=== PATIENT | male | born 1965 | race Caucasian/White ===

== ENCOUNTER 2020-03-09 12:49 | Inpatient (IN) | payer MEDICAID ==
[~2020-03-09] VITALS: Ht 175.3 cm; Wt 74.8 kg
[2020-03-09] MEDS ORDERED: IV NS 0.9% 1,000 ML BAG IV ONE (13:00)
--- NOTE | 2020-03-09 13:00 | NUR ---
CALLED POISON CONTROL [phone] CHARLY WATCH FOR LEAVE MANAGER DEPRESSION QRS WIDENING AND IN EXTREME CASES SEIZURE, AWARE.
--- NOTE | 2020-03-09 13:10 | NUR ---
DELANEY FROM HIS CAR PAR ALONG [facility] TO ER BED 5. ARRIVED ON 02 VIA NON REBREATHER MASK @ 15LMP SATTING AT 100%. PT IS DIFFICULT TO ARROUSE, WAKES UP WITH PAINFUL STIMULI BUT GOES BACK TO SLEEP RIGHT AWAY. PT IS TRYING TO PULL OUT EQUIPMENT SO MD ORDERED TO PUT BILAT UPPER EXT SOFT RESTRAINT. PER EMS REPORT, PT WAS OVERDOSED ON PAXIL, AMBIEN AND UNISOM OF UNKNOWN AMOUNT. PT IS NOW ON O2 VIA SIMPLE FACE MASK @ 6LPM, SATTING @ 99%. ACCORDING TO DAUGHTER, PT STARTED SAYING GOOD BYE TO HIS FAMILY YESTERDAY. SHE REPORTS THAT THE PT LOST HIS JOB RECENTLY. PT WAS ALSO NOTED WITH MULTIPLE CROSSWISE LACERATIONS ON HIS L WRIST, NOT ACTIVELY BLEEDING, AVERAGING ABOUT 1CM IN LENTH WITH MULTIPLE DEPTH. MD WAS AT THE BEDSIDE FOR EVAL. ORDERS RECEIVED NOTED AND CARRIED OUT. IV LINE PRESNET ON R AC 18G. ANOTHER IV ESTABLISHED ON THE RFA 18G. BLOOD DRAWN AND GIVEN TO BOTTOM PRECIPITATOR OPERATOR AT BEDSIDE. WILL CONTINUE TO MONITOR
[2020-03-09 13:13] LABS: BASOPHILS % (AUTO) 0.6 % (0.0-2.0); EOSINOPHILS % (AUTO) 0.2 % (0.0-6.0); HEMATOCRIT 42 % (39-51); LYMPHOCYTES # (AUTO) 1.1 /CMM (0.8-4.8); LYMPHOCYTES % (AUTO) 15.5 % (20.0-44.0); MEAN CORPUSCULAR HGB CONC 33 g/dl (31.0-36.0); MEAN CORPUSCULAR VOLUME 91 fL (80-96); MONOCYTES # (AUTO) 0.5 /CMM (0.1-1.30); MONOCYTES % (AUTO) 6.2 % (2.0-12.0); NEUTROPHILS # (AUTO) 5.7 /CMM (1.8-8.9); NEUTROPHILS % (AUTO) 77.5 % (43.0-81.0); PLATELET COUNT (AUTO) 357 /CMM (150-450); RED BLOOD CELL COUNT(AUTO) 4.64 MIL/uL (4.5-6.0); WHITE BLOOD COUNT (AUTO) 7.3 K/uL (4.3-11.0)
[2020-03-09] MEDS ORDERED: LIDOCAINE HCL/MPF 1% 30 ML VIAL IJ ONE (13:21)
--- NOTE | 2020-03-09 13:25 | NUR ---
PT +CIRCULATION, CAP REFILL WNL. RESTRAINT REMOVED FOR A MINUTE
[2020-03-09] MEDS ORDERED: TDAP [DIPH/PERTUSSIS/TET] 0.5 ML VIAL IM ONE ×2 (13:30→14:36)
--- NOTE | 2020-03-09 13:30 | NUR ---
[employer] TALKING TO PT'S DAUGHTER.
[2020-03-09 13:36] LABS: CALCIUM, SERUM 8.6 mg/dL (8.5-10.1); CARBON DIOXIDE 28 mmol/L (21-32); CHLORIDE 99 mmol/L (98-107); CREATININE 0.9 mg/dL (0.6-1.3); GLUCOSE 116 mg/dL (74-106); POTASSIUM 3.5 mmol/L (3.5-5.1); SODIUM SERUM 133 mmol/L (136-145); UREA NITROGEN, BLOOD 10 mg/dL (7-18)
[2020-03-09 13:42] LABS: ALANINE AMINOTRANSFERASE 29 U/L (12-78); ALBUMIN 3.9 g/dL (3.4-5.0); ALCOHOL, BLOOD < 3 mg/dL (0-0); ALKALINE PHOSPHATASE 55 U/L (46-116); ASPARTATE AMINOTRANSFERASE 17 U/L (15-37); BILIRUBIN,DIRECT 0.2 mg/dL (0.0-0.2); BILIRUBIN,TOTAL 0.9 mg/dL (0.2-1.0); TOTAL PROTEIN, SERUM 7.1 g/dL (6.4-8.2)
[2020-03-09 13:44] LABS: ACETAMINOPHEN < 10 ug/ml (10-30); SALICYLATE < 2.8 mg/dL (2.8-20.0)
[2020-03-09] MEDS ORDERED: ZOLP10TA2 PO (13:58)
[2020-03-09] MEDS ORDERED: PARO20TA7 PO (13:58)
--- NOTE | 2020-03-09 14:00 | NUR ---
PT'S RESTRAINTS WAS DISCONTINUED SINCE PT IS SLEEPING AND VERY SEDATED.
--- NOTE | 2020-03-09 14:00 | NUR ---
AT BEDSIDE FOR SUTURE
--- NOTE | 2020-03-09 14:02 | NUR ---
PT O2 TITRATED AND TOLERATED W/O O2 USE. SATTING @ 96-98% ON RA. IS OK WELL KRISSY STANFORD
--- NOTE | 2020-03-09 14:31 | NUR ---
CORNELL PLACED PT ON 5210 HOLD FOR DEANGER TO SELF. WRITTEN ON 03/09/20 @ 6144
[2020-03-09 14:52] LABS: APPEARANCE,URINE Clear (CLEAR); BILIRUBIN,URINE Negative (NEGATIVE); BLOOD, URINE Trace-intact Ery/uL (NEGATIVE); COLOR,URINE Yellow (YELLOW); KETONES,URINE Negative (NEGATIVE); LEUKOCYTE ESTERASE ,URINE Negative (NEGATIVE); NITRITE, URINE Negative (NEGATIVE); PROTEIN,URINE Negative (NEGATIVE); UGLUCOSE Negative (NEGATIVE); UROBILINOGEN,URINE 0.2 EU/dL (0.2)
[2020-03-09] MEDS ORDERED: MAGNESIUM HYDROXIDE 30 ML UDC PO PRN (15:00)
[2020-03-09] MEDS ORDERED: Z GUARD REMEDY 2 OZ OINT TP PRN (15:00)
[2020-03-09] MEDS ORDERED: MAG HYDROX/AL HYDROX/SIMETH 30 ML UDC PO PRN (15:00)
[2020-03-09] MEDS ORDERED: ONDANSETRON HCL/PF 4 MG/2 ML VIAL IVP PRN (15:00)
[2020-03-09 15:09] LABS: BACTERIA,URINE None seen /HPF (None Seen); SQUAMOUS EPITHELIAL CELL,UR Few /HPF (None Seen); WBC,URINE 0-2 /HPF (0-3)
--- NOTE | 2020-03-09 15:18 | NUR ---
received a covid 19 result from the lab "negative".
--- NOTE | 2020-03-09 15:43 | NUR ---
REPORT GIVEN TO JAMES SIMS FOR ROLANDA.
--- NOTE | 2020-03-09 16:11 | NUR ---
PT TRANSPORTTED TO UNIT ON [facility] WITH EMT AND RN AT BEDSIDE W/ ACLS PROTOCOL. NAD NOTED DURING TRANSPORT.
--- NOTE | 2020-03-09 16:15 | NUR ---
ADMISSION NOTES RECEIVED PATIENT FROM ER VIA JAMES DANIELLE AT BED SITE AND SITTER SARAY, PATIENT IS SLEEPING, UNABLE TO AROUSE, VITAL SIGNS: TEMP-98.1; HR-93; RESP-18, SPO2-97%, BP: 117/76 ON ROOM AIR, NO SOB, DISTRESS NOTED, EVEN RESPIRATIONS, 5 CUTS ON L WRIST , PLACED KERLIX IN ER, R WRIST ONE CUT, PIC TAKEN, r AC G18 AND r FA G18 , NOTED, INTACT, FLUSHED,, PATENT BRYSON IN PLACE, DRAINING YELLOW URINE BY GRAVITY SAFETY MEASURES IMPLEMENTED, CALL LIGHT IN REACH, SITTER AT BED SITE, WILL CONT TO MONITOR
[2020-03-09 16:25] VITALS: BP 156/98
--- NOTE | 2020-03-09 16:30 | NUR ---
CALLED DAUGHTER NICOLE [phone] TO OBTAIN PT'S HX, ASKED TO ADD HIS TO CONTACT LIST AKASH [phone]
--- NOTE | 2020-03-09 16:39 | NUR ---
PER DAUGHTER PATIENT HAS HX OF DEPRESSION BEFORE, TOOK PAXIL, BUT OFF PILLS FOR THE YEAR FOR NOW
[2020-03-09] MEDS: IV NS 0.9% 1,000 ML IV PRN (16:46)
--- NOTE | 2020-03-09 17:01 | NUR ---
PATIENT HAVING SNORING RR 16 NONAROUSABLE NOTIFIED STANFORD OORDERED ABG AWAITS RESULT.
[2020-03-09 17:10] LABS: ABG BASE EXCESS 0.1 mmol/L; ABG OXYGEN SATURATION 97.2 % (92.0-98.5); ABG PCO2 43.2 mmHg (35.0-45.0); ABG PH 7.386 (7.350-7.450); COHb 1.8 % (0.5-1.5); MetHb 0.1 % (0.0-1.5); O2Hb 95.4 % (94.0-97.0); SITE, ABG Left Brachial; VENT MODE, BG ROOM AIR
[2020-03-09] MEDS: ENOXAPARIN SODIUM 40 MG/0.4 ML DISP.SYRIN SQ SCH (17:56)
--- NOTE | 2020-03-09 18:44 | NUR ---
PAGED STANFORD REGARDING ABG RESULT.
--- NOTE | 2020-03-09 18:51 | NUR ---
ABG RESULT IN RELAYED TO KRISSY WILL RECHECK ABG IN 4 HOURS TO MONITOR .
--- NOTE | 2020-03-09 19:20 | NUR ---
DN FROM POISON CONTROL CALLED, PROVIDED REPORT [facility], PM SHIFT RN NOTIFIED
--- NOTE | 2020-03-09 19:30 | NUR ---
RN CLOSING NOTES PATIENT REMAINS IN BED, SLEEPING,NOT REACTING TO NAME, TOUCH, WITHDRAW FROM LIGHT PAIN, ON ROOM AIR, SPO2 98%, SITTER AT BED SITE. BRYSON AT PLACE, DRAINING YELLOW URINE BY GRAVITY, INTACT and patent, IV LINES ON RIGHT HAND, WRIST AND FOREARM ROBERTO 18, INTACT AND PATENT.SAFETY MEASURES IN PLACE, BED LOCKED, CALL LIGHT IN REACH, WILL ENDORSE TO PM SHIFT RN FOR ROLANDA
--- NOTE | 2020-03-09 19:50 | NUR ---
RN TD OPENING NOTES, PATIENT IN BED, SLEEPING, ASLEEP SNORING, RESPONDING TO PAINFUL STIMULI TOUCH, NO DISTRESS NOTED AT THIS TIME, ON ROOM AIR SPO2 97- 98%, SITTER AT BED SITE, IV PERIPHERAL LINES ON RIGHT HAND, WRIST AND FOREARM GAUGE 18, PATENT AND INTACT, ALL SAFETY MEASURES IN PLACE, BED LOCKED, CALL LIGHT IN REACH, ON CONTINUE O2 SAT MONITORING, WILL CONTINUE TO MONITOR CLOSELY.
--- NOTE | 2020-03-09 19:50 | NUR ---
RN TD OPENING NOTES, PATIENT NSR WITH HR IN 80S ON TELE MONITOR AT THIS TIME.
[2020-03-09 20:00] VITALS: BP 151/99
[2020-03-09 21:17] LABS: ABG OXYGEN SATURATION 96.5 % (92.0-98.5); ABG PCO2 40.5 mmHg (35.0-45.0); ABG PH 7.418 (7.350-7.450); ABG PO2 81.5 mmHg (75.0-100.0); AaDO2 19.7 mmHg; COHb 1.3 % (0.5-1.5); MetHb 0.3 % (0.0-1.5); SITE, ABG Right Radial; VENT MODE, BG rooomair
[2020-03-10] VITALS: BP 147/101
--- NOTE | 2020-03-10 | NUR ---
RN NOTE, PATIENT MORE AROUSABLE OPEN AYES, BUT STILL CONTINUE SLEEPY, RESPOND TO NAME, DENIES ANY PAIN OR DISCOMFORT. SITTER AT BEDSIDE AT ALL TIMES FOR SAFETY.
--- NOTE | 2020-03-10 03:00 | NUR ---
RN NOTES, PATIENT A/O ABLE TO IDENTIFY SELF, CZECH SPEAKING, ABLE TO MENTIONED FAMILY MEMBERS NAMES SUCH DAUGHTER AND , BUT SEEMS CONFUSED AT TIMES, DENIES PAIN OR DISCOMFORT, SITTER AT BEDSIDE AT ALL TIMES, WILL CONTINUE TO MONITOR CLOSELY.
[2020-03-10 04:00] VITALS: BP 159/102
[2020-03-10 06:24] LABS: BASOPHILS % (AUTO) 0.3 % (0.0-2.0); EOSINOPHILS % (AUTO) 0.3 % (0.0-6.0); HEMATOCRIT 42 % (39-51); HEMOGLOBIN 14.2 g/dL (13.5-17.5); LYMPHOCYTES # (AUTO) 0.9 /CMM (0.8-4.8); LYMPHOCYTES % (AUTO) 8.8 % (20.0-44.0); MEAN CORPUSCULAR HGB CONC 34 g/dl (31.0-36.0); MEAN CORPUSCULAR VOLUME 90 fL (80-96); MONOCYTES # (AUTO) 0.7 /CMM (0.1-1.30); MONOCYTES % (AUTO) 7.1 % (2.0-12.0); NEUTROPHILS # (AUTO) 8.6 /CMM (1.8-8.9); NEUTROPHILS % (AUTO) 83.5 % (43.0-81.0); PLATELET COUNT (AUTO) 325 /CMM (150-450); RED BLOOD CELL COUNT(AUTO) 4.68 MIL/uL (4.5-6.0); WHITE BLOOD COUNT (AUTO) 10.3 K/uL (4.3-11.0)
--- NOTE | 2020-03-10 06:42 | NUR ---
RN TD OPENING NOTES, PATIENT IN BED, AWAKE A/O TO SELF CONTINUE AT ROOM AIR, BREATHING EVEN AND UNLABORED, NO S/S DISTRESS NOTED AT THIS TIME, SITTER AT BED SITE, IV PERIPHERAL LINES ON RIGHT HAND, WRIST AND FOREARM GAUGE 18, PATENT AND INTACT, ALL SAFETY MEASURES IN PLACE, BED LOCKED, CALL LIGHT IN REACH, WILL ENDORSE CONTINUITY OF CARE TO ONCOMING NURSE.
[2020-03-10 06:44] LABS: ALBUMIN 3.8 g/dL (3.4-5.0); BILIRUBIN,DIRECT 0.3 mg/dL (0.0-0.2); BILIRUBIN,TOTAL 1.4 mg/dL (0.2-1.0); CALCIUM, SERUM 8.1 mg/dL (8.5-10.1); CREATININE 0.9 mg/dL (0.6-1.3); MAGNESIUM 2.1 mg/dL (1.8-2.4); PHOSPHORUS 2.9 mg/dL (2.5-4.9); POTASSIUM 3.6 mmol/L (3.5-5.1)
[2020-03-10] MEDS: IV NS 0.9% 1,000 ML IV PRN (06:45)
[2020-03-10 06:51] LABS: THYROID STIMULATING HORMONE 1.164 uIU/mL (0.358-3.74)
--- NOTE | 2020-03-10 07:35 | NUR ---
RN OPENING NOTE: Received patient in bed. Awake, alert and oriented x3. Able to make needs known. Speaks and understands Belarusian. On room air being tolerated well. No SOB and not in respiratory distress. Saturation noted @ 96%, RR: 17. Patient with no complaints of pain, no pain noted as well. Verbalized no intention of self-harm/ suicidal ideation when asked directly. IV site clean, dry, patent and intact. NS @ 75mls/hr infusing and being tolerated well. Sitter at bedside. Call light in reach. Bed locked, low and at semi-mckinney's position. Side rails up x3. Safety ensured and observed. Will continue to monitor.
[2020-03-10 08:00] VITALS: BP 157/100
[2020-03-10 16:00] VITALS: BP 159/100
[2020-03-10 16:10] VITALS: BP 159/100
--- NOTE | 2020-03-10 19:33 | NUR ---
RN CLOSING NOTE: Patient remains in bed. Awake, alert and oriented x3. Able to make needs known. Speaks and understands Tamazight. On room air being tolerated well. No SOB and not in respiratory distress. Saturation noted @ 97%, RR: 16. Patient with no complaints of pain, no pain noted as well. Verbalized no intention of self-harm/ suicidal ideation when asked directly. IV site clean, dry, patent and intact. NS @ 75mls/hr infusing and being tolerated well. Sitter at bedside. Seen by Aristeo Triana and Dr. Membreno earlier on shift. On 5150 hold, patient verbalized understanding on the hold. Family is aware of the situation. Call light in reach. Bed locked, low and at semi-mckinney's position. Side rails up x3. Safety ensured and observed. Endorsed to oncoming shift for ROLANDA.
--- NOTE | 2020-03-10 19:35 | NUR ---
MS RN NOTES RECEIVED ON BED A/O X2-3,HIGH FOWLERS POSITION,BREATHING REGULAR,NOT IN ANY FORM OF DISTRESS.SITTER AT BEDSIDE FOR 5150 HOLD,DUE TO DEPRESSION AND SUICIDAL THOUGHT ,NONE AT THE MOMENT.IVF NS AT 75ML/HR RATE INFUSING ON RIGHT ARM,SITE PATENT.CALL LIGHT IN REACH,NEEDS ANTICIPATED.
[2020-03-10 20:00] VITALS: BP 163/100
--- NOTE | 2020-03-10 20:45 | NUR ---
MS RN NOTES BLOOD PRESSURE ELEVATED,HOSPITALIST HERMILA MADE AWARE,WITH ORDER TO JUST CONTINUE TO MONITOR PATIENT STATUS.
[2020-03-10] MEDS: ACETAMINOPHEN 325 MG TABLET PO PRN (21:20)
[2020-03-10] MEDS: ENOXAPARIN SODIUM 40 MG/0.4 ML DISP.SYRIN SQ SCH (21:20)
--- NOTE | 2020-03-10 21:20 | NUR ---
MS RN NOTES AMBULATE TO THE BATHROOM ASSISTED BY VANESSA ESPARZA,BACK TO BED WITH SLIGHT DIZZINESS AND MILD HEADCHE,MEDICATED WITH TYLENOL 650MG PO ORDERED FOR MILD PAIN.WILL CONTINUE TO MONITOR.
[2020-03-11] VITALS: BP 156/93
[2020-03-11] MEDS: TRAZODONE 50 MG TABLET PO PRN ×2 (00:29→22:44)
--- NOTE | 2020-03-11 00:29 | NUR ---
MS RN NOTES C/O INSOMNIA,TRAZODONE 50MG PO GIVEN PER PATIENT REQUEST.MONITOR HOUR OF SLEEP.SITTER AT BEDSIDE.
[2020-03-11] MEDS: IV NS 0.9% 1,000 ML IV PRN ×2 (03:41→17:29)
[2020-03-11 04:00] VITALS: BP 132/85
--- NOTE | 2020-03-11 06:11 | NUR ---
MS RN NOTES FAIRLY RESTED AT,SLEPT 5 HOURS WITH TRAZODONE.HEADACHE IMPROVED.IVF INFUSING ON RIGHT WRIST AREA,SITE PATENT.BLOOD PRESSURE IMPROVED,LATEST READING 132/85,PULSE-81.DENIES SUICIDAL IDEATION,ON 5149 HOLD,WILL ON 03/12 AT 2PM.IN NO ACUTE DISTRESS.WILL ENDORSE TO DAY NURSE FOR ROLANDA.
[2020-03-11 08:00] VITALS: BP 133/75
--- NOTE | 2020-03-11 08:06 | NUR ---
tele r note patient in bed ,awake alert x3,rt hand and rt fa hl intact and flushed well ,with sitter at bedside, all needs attended stated that feel with dizziness recommended dont get up without assistance and will report to doctor , able to ear breakfast self , bed in lowest and locked position .on ivf as ordered, plan of care discussed with patient will cont to monitor
[2020-03-11] MEDS: PAROXETINE HCL 20 MG TABLET PO SCH (08:13)
--- NOTE | 2020-03-11 08:16 | NUR ---
Executive Cyber Leader spoke with the patient. Patient is a 54 year-old Male. Patient is currently on a 5150 hold. Per MD note, "54-year-old male with questionable history of bipolar disorder according to his daughter who is brought in by EMS after an overdose of multiple medications. " Patient states that this suicidal intent was brought on by past anxiety, feeling of depression due to daughters moving out of his home and other home-life situations patient did not want to disclose. Patient reports that he has taken psychiatric medication for 15 years however he had stopped about a year ago per changes in his life. Patient sounded remorseful of the decision he had made and asked for this SW to speak with his Laure. Patient states he wants to be better for her. This SW will fulfill the patient's request. Per patient, he is agreeing to voluntary psychiatric treatment at [facility], this SW will refer the patient to Eric . SW to remain available for all needs regarding the patient.
--- NOTE | 2020-03-11 08:58 | NUR ---
FIELD RESEARCH ASSOCIATE NOTE KRISSY ABAD RN AIRWORTHINESS SAFETY INSPECTOR AT BEDSIDE NOTIFIED THAT PATIENT C\O DIZZINESS , ORDERED EKG STAT RT NOTIFIED WILL F\U
--- NOTE | 2020-03-11 09:55 | NUR ---
CAMPAIGN ADVISOR NOTE EKG DONE ORDERED RESULT REPORTED TO KRISSY MONZON RN CHANGE MANAGEMENT ADMINISTRATOR NO NEW ORDER GIVEN WILL F\U
[2020-03-11 10:01] LABS: BASOPHILS % (AUTO) 0.2 % (0.0-2.0); EOSINOPHILS % (AUTO) 0.4 % (0.0-6.0); HEMATOCRIT 41 % (39-51); HEMOGLOBIN 13.9 g/dL (13.5-17.5); LYMPHOCYTES # (AUTO) 0.5 /CMM (0.8-4.8); LYMPHOCYTES % (AUTO) 5.6 % (20.0-44.0); MEAN CORPUSCULAR HGB CONC 34 g/dl (31.0-36.0); MEAN CORPUSCULAR VOLUME 89 fL (80-96); MONOCYTES # (AUTO) 0.5 /CMM (0.1-1.30); MONOCYTES % (AUTO) 6.4 % (2.0-12.0); NEUTROPHILS # (AUTO) 7.5 /CMM (1.8-8.9); NEUTROPHILS % (AUTO) 87.4 % (43.0-81.0); PLATELET COUNT (AUTO) 301 /CMM (150-450); RED BLOOD CELL COUNT(AUTO) 4.65 MIL/uL (4.5-6.0); WHITE BLOOD COUNT (AUTO) 8.6 K/uL (4.3-11.0)
[2020-03-11 10:13] LABS: ALBUMIN 3.4 g/dL (3.4-5.0); BILIRUBIN,DIRECT 0.2 mg/dL (0.0-0.2); BILIRUBIN,TOTAL 0.9 mg/dL (0.2-1.0); CALCIUM, SERUM 8.4 mg/dL (8.5-10.1); CREATININE 0.8 mg/dL (0.6-1.3); TOTAL PROTEIN, SERUM 6.8 g/dL (6.4-8.2)
[2020-03-11 12:00] VITALS: BP 140/75
--- NOTE | 2020-03-11 12:27 | NUR ---
MS RN NOTE DR BARLOW AT BEDSIDE PSYCHIATRIST CONT ON HOLD, WILL F\U
--- NOTE | 2020-03-11 12:55 | NUR ---
Product Scientist spoke with the patient regarding voluntary treatment. Product Scientist clarified to the patient that this is the best option for him. Patient was hesitant as he did not want to go to psychiatric hospital " no quiero que me den [facility] y que no me sienta joo (I dont want them giving me a lot of medications for me not to feel good" SW affirmed patient concerns and the patient informed this SW that he is not ready to leave [facility]. SW informed the patient that his doctor will give this SW information regarding patients medical clearance before this SW refers him to [facility] to move forward with voluntary psychiatric treatment.
[2020-03-11] MEDS ORDERED: TRAZ-252 PO (13:20)
--- NOTE | 2020-03-11 13:52 | NUR ---
ARMATURE TESTER NOTE PER KRISSY BUCKLEY RN MAIL MACHINE OPERATOR BRYSON CATH IS REMOVED 900 ML YELLOW COLOR URINE NOTED
--- NOTE | 2020-03-11 15:56 | NUR ---
MARKER ASSEMBLER NOTE ABLE TO URINATE 100 ML OF YELLOW COLOR URINE CONT ON IVF ORDERED ,STILL ON HOLD ORDERED, WILL F\U
[2020-03-11 16:00] VITALS: BP_SYST 116; BP_SYST 139; BP_DIAS 70; BP_DIAS 89
--- NOTE | 2020-03-11 16:50 | NUR ---
MEDICAL RECORD TECHNICIAN NOTE PER MOLDER LABELS KIKA PATIENT WILL BE TRANSFERRING TOMORROW TO PSYCH UNIT\FACILITY
[2020-03-11] MEDS: ACETAMINOPHEN 325 MG TABLET PO PRN (18:19)
--- NOTE | 2020-03-11 18:38 | NUR ---
MS RN CLOSING NOTES PT REMAINS IN BED. A/O X4. RA SATURATING AT 98% NO SOB OR ACUTE RESPIRATORY DISTRESS NOTED. FC IS D/SHABANA. PT ABLE TO URINATE USING URINAL. R HAND AND R FOREARM INTACT, PATENT AND FLUSHED. NS @ 75CC/HR INFUSING WELL. SITTER AT BEDSIDE. STILL ON HOLD. POSSIBLE D/C TOMORROW ONCE [facility] IS AVAILABLE. TYLENOL GIVEN FOR PAIN. SAFETY MEASURES OBSERVED. CALL LIGHT WITHIN REACH. BED LOCKED AND AT LOWEST POSITION, SIDE RAILS UPX 2. WILL ENDORSE TO DEPOSIT CLERK FOR ROLANDA
--- NOTE | 2020-03-11 19:35 | NUR ---
MS RN OPENING NOTES PATIENT AWAKE IN BED. A/OX3. 1 ON 1 SITTER PRESENT FOR PATIENT SAFETY; PATIENT ON 5150 HOLD. PATIENT CURRENTLY CALM AND COOPERATIVE. ON RA; NO C/O OF SOB; BREATHING IS EVEN AND UNLABORED. IV PRESENT ON RIGHT AC, INTACT & PATENT, HEP LOCKED. IV PRESENT ON RIGHT FA, SIZE 18, INTACT & PATENT, WITH NS RUNNING AT 75 ML/HR. DRESSING ON LEFT WRIST DRY AND INTACT. SAFETY MEASURES IN PLACE AND PATIENT'S NEEDS MET. BED LOCKED, HOB ELEVATED, SIDE RAILS X2, CALL LIGHT WITHIN REACH. WILL CONTINUE TO MONITOR.
[2020-03-11 20:09] VITALS: BP 151/95
[2020-03-11] MEDS: ENOXAPARIN SODIUM 40 MG/0.4 ML DISP.SYRIN SQ SCH (20:21)
[2020-03-12 04:00] VITALS: BP 136/81
--- NOTE | 2020-03-12 06:47 | NUR ---
MS RN CLOSING NOTES PATIENT SLEEPING. A/OX3. 1 ON 1 SITTER PRESENT FOR PATIENT SAFETY; PATIENT ON 5150 HOLD; EXPIRES THIS AFTERNOON AT 1400. PATIENT CURRENTLY CALM AND COOPERATIVE. ON RA; NO C/O OF SOB; BREATHING IS EVEN AND UNLABORED. IV PRESENT ON RIGHT AC, INTACT & PATENT, HEP LOCKED. IV PRESENT ON RIGHT FA, SIZE 18, INTACT & PATENT, WITH NS RUNNING AT 75 ML/HR. DRESSING ON LEFT WRIST DRY AND INTACT. SAFETY MEASURES IN PLACE AND PATIENT'S NEEDS MET. BED LOCKED, HOB ELEVATED, SIDE RAILS X2, CALL LIGHT WITHIN REACH. WILL ENDORSE TO DAY SHIFT RN PLAN OF CARE.
--- NOTE | 2020-03-12 07:30 | NUR ---
FOLDED TOWEL MACHINE OPERATOR OPENING NOTES PATIENT AWAKE IN BED. A/OX3. 1 ON 1 SITTER PRESENT FOR PATIENT SAFETY. NO ACUTE DISTRESS NOTED. PATIENT CURRENTLY CALM AND COOPERATIVE. ON RA; NO C/O OF SOB; BREATHING IS EVEN AND UNLABORED. IV PRESENT ON RIGHT AC, INTACT & PATENT, HEP LOCKED. IV PRESENT ON RIGHT FA, SIZE 18, INTACT & PATENT, WITH NS RUNNING AT 75 ML/HR. DRESSING ON LEFT WRIST DRY AND INTACT. SAFETY MEASURES IN PLACE AND PATIENT'S NEEDS MET. HOB ELEVATED, SIDE RAILS X2, CALL LIGHT WITHIN REACH. WILL CONTINUE TO MONITOR
[2020-03-12] MEDS: PAROXETINE HCL 20 MG TABLET PO SCH (09:28)
[2020-03-12] MEDS: IV NS 0.9% 1,000 ML IV PRN (09:39)
--- NOTE | 2020-03-12 09:45 | NUR ---
Serging Machine Operator spoke with the patient regarding voluntary treatment. Serging Machine Operator clarified to the patient that this is the best option for him. Patient has been agreeable for voluntary psychiatric treatment, SW to fax information over to [facility].
--- NOTE | 2020-03-12 10:12 | NUR ---
This SW received a call from [facility] from [facility]. [facility] needs 5150 clearance to accept the patient. Bed is being held for the patient. SW to make Dr. Membreno aware of bed placement.
--- NOTE | 2020-03-12 10:39 | NUR ---
This BITA received a call from Lexis from [facility]. Need another alcohol and toxic screen before accepting the patient. Addendum: 03/12/20 at 1040 by RADHA SUNSHINE BITA informed beef cattle farmer Soon about this request. Per beef cattle farmer Soon, she will make the order.
--- NOTE | 2020-03-12 11:00 | NUR ---
FIRE CREW SPECIALIST NOTES ORTHOSTATIC BP DONE WITH RESULTS FOLLOWS: LYING (BP 150/87, hr 86), SITTING (BP 143/94, hr86), STANDING (BP 129/92, hr 99)
--- NOTE | 2020-03-12 12:25 | NUR ---
New toxicology report and Dr Membreno's note of 7820 clearance has been faxed to [facility].
--- NOTE | 2020-03-12 13:19 | NUR ---
This SW received a call from Lexis from [facility]. Patient has been accepted to [facility] under the care of Dr. Wilson. Call Ayde for report. Addendum: 03/12/20 at 1341 by RADHA SUNSHINE BITA informed supervisor lamp shades Soon to call for report. Room number needed to arrange transport.
--- NOTE | 2020-03-12 14:53 | NUR ---
PROFESSIONAL PROGRAMMER ANALYST NOTES CALLED [facility] AND GAVE REPORT TO ANISHA (JAMES)
[2020-03-12] MEDS: ACETAMINOPHEN 325 MG TABLET PO PRN (15:25)
--- NOTE | 2020-03-12 17:19 | NUR ---
LIME MIXER DISCHARGE NOTES PT PICKED UP BY 2 ATTENDEES VIA [facility], AND DISCHARGED TO [facility]. A/OX3. NO ACUTE DISTRESS NOTED. PATIENT CURRENTLY CALM AND COOPERATIVE. ON RA; NO C/O OF SOB; BREATHING IS EVEN AND EASY. BELONGINGS PROVIDED TO PATIENT. PT LEFT THE FACILITY IN STABLE CONDITION.
== END 2020-03-12 17:36 | DRG 812 ==
LOC: ER 12:52 → TELE1 15:54 → TELE-TD 18:11 → MEDSG1 03-10 09:14
PROVIDERS: ADMIT Nurse Practitioner Acute Care; ATTEND Nurse Practitioner Acute Care
PROC: 0HQEXZZ Repair Left Lower Arm Skin, External Approach (ICD-10-PCS; principal; 2020-03-09)
DX: T43.222A Poisoning by selective serotonin reuptake inhibitors, intentional self-harm, initial encounter (principal); T45.0X2A Poisoning by antiallergic and antiemetic drugs, intentional self-harm, initial encounter; G92 Toxic encephalopathy; Y92.89 Other specified places as the place of occurrence of the external cause; E87.1 Hypo-osmolality and hyponatremia; S61.512A Laceration without foreign body of left wrist, initial encounter; Z81.8 Family history of other mental and behavioral disorders; E80.6 Other disorders of bilirubin metabolism; J98.11 Atelectasis; F33.2 Major depressive disorder, recurrent severe without psychotic features
CPT/HCPCS: 36415; 36600; 71045-TC; 80048-TC; 80061-TC; 80076-TC; 80305; 81000-TC; 82550-TC; 82803-TC; 83735-TC; 84100-TC; 84443-TC; 84484-TC; 85025-TC; 87081-TC; 90715; 92611-TC; A6403; C9803-CS; G0378; G0480; J1650; J2405; J3490; J7030

== ENCOUNTER 2020-03-23 20:18 | Emergency (ER) | payer MEDICAID ==
[~2020-03-23] VITALS: Ht 177.8 cm; Wt 74.8 kg
[~2020-03-23 20:18] MED LIST: PARO20TA7 PO; TRAZ-252 PO; ZOLP10TA2 PO
[2020-03-23 20:20] VITALS: BP 140/69
== END 2020-03-23 22:25 | disposition home or self-care (01) ==
LOC: ER 20:22
DX: S61.512D Laceration without foreign body of left wrist, subsequent encounter (principal); R41.82 Altered mental status, unspecified; Z79.899 Other long term (current) drug therapy; X58.XXXD Exposure to other specified factors, subsequent encounter